=== PATIENT | female | born 1980 | race Caucasian/White ===

== ENCOUNTER 2021-06-21 15:21 | Inpatient (IN) | payer MEDICAID, OTHER ==
[~2021-06-21] VITALS: Ht 162.6 cm; Wt 95.3 kg
[2021-06-21 15:58] LABS: CHLORIDE 102 mEq/L (98-107)
[2021-06-21 15:59] LABS: BASOPHILS % 0.5 % (0.0-2.0); EOSINOPHILS % 1.5 % (0.0-5.0); HEMATOCRIT. 35.3 % (36.0-48.0); LYMPHOCYTES % 17.2 % (20.0-50.0); MEAN CORPUSCULAR HEMOGLOBIN 29.5 pg (28.0-32.0); MEAN CORPUSCULAR VOLUME 86.8 fL (81.0-99.0); MEAN PLATELET VOLUME 8.2 fl (7.4-10.4); MONOCYTES % 7.3 % (2.0-8.0); NEUTROPHILS % 73.5 % (40.0-76.0); PLATELET 316 x1000/uL (130-400); RED BLOOD CELL COUNT 4.07 mill/uL (4.2-5.4); RED CELL DISTRIBUTION WIDTH 14.2 % (11.6-14.6)
[2021-06-21 21:14] LABS: HCG SCREEN NEGATIVE
[2021-06-21] MEDS ORDERED: CEFTRIAXONE 1 G PREMIX 50 ML IV ONE (23:00)
[2021-06-21] MEDS ORDERED: SODIUM CHLORIDE 0.9% 1000ML BAG (SEPSIS BOLUS) IV ONE (23:00)
[2021-06-21 23:21] LABS: CLARITY URINE CLEAR (CLEAR); COLOR URINE DARK YELLOW (YELLOW); KETONES URINE TRACE (NEGATIVE); OCCULT BLOOD URINE NEGATIVE (NEGATIVE); PH URINE 5.5 (4.5-8.0); PROTEIN URINE 2+ (NEGATIVE); SPECIFIC GRAVITY URINE 1.034 (1.005-1.030)
[2021-06-21 23:22] LABS: LEUKOCYTE ESTERASE URINE NEGATIVE (NEGATIVE); NITRITE URINE NEGATIVE (NEGATIVE)
[2021-06-22] MEDS ORDERED: ACETAMINOPHEN 325MG TABLET PO PRN (04:00)
[2021-06-22] MEDS ORDERED: CLONIDINE 0.1MG TABLET PO PRN (04:00)
[2021-06-22] MEDS ORDERED: ONDANSETRON HCL 4MG/2ML INJ IV PRN (04:00)
[2021-06-22] MEDS ORDERED: ENOXAPARIN 40MG/0.4ML SYR SUBCUT SCH (04:00)
[2021-06-22] MEDS ORDERED: DOCUSATE SODIUM 100MG CAPSULE PO PRN (04:00)
[2021-06-22] MEDS ORDERED: NALOXONE HCL 0.4 MG/ML 1ML VIAL IV PRN (04:15)
[2021-06-22] MEDS: SODIUM CHLORIDE 0.9% 1,000 ML IV SCH ×2 (04:58→17:27)
[2021-06-22] MEDS ORDERED: VANCOMYCIN 1 G PREMIX 200 ML IV SCH (05:00)
[2021-06-22] MEDS: HYDROCODONE/ACETAMINOPHEN 5/325MG TABLET PO PRN ×2 (05:31→12:37)
[2021-06-22] MEDS ORDERED: DEXTROSE 50% WATER 50ML SYRINGE IV PRN (08:00)
[2021-06-22] MEDS: INSULIN LISPRO 100 UNITS/ML SUBCUT SCH ×4 (08:18→22:23)
[2021-06-22] MEDS: ENOXAPARIN 30MG/0.3ML SYR SUBCUT SCH ×2 (09:22→21:00)
[2021-06-22] MEDS: VANCOMYCIN 1 G PREMIX 200 ML IV SCH (18:26)
[2021-06-23] VITALS: BP 128/79
[2021-06-23] MEDS ORDERED: CEFTRIAXONE 1 G PREMIX 50 ML IV SCH
[2021-06-23 00:30] VITALS: BP 128/79
[2021-06-23] MEDS ORDERED: CEFTRIAXONE 1,000 MG in DEXTROSE 5% WATER 50 ML IV SCH (01:00)
[2021-06-23] MEDS: HYDROCODONE/ACETAMINOPHEN 5/325MG TABLET PO PRN (01:17)
[2021-06-23] MEDS ORDERED: OMEP20CA14 MT (03:56)
[2021-06-23] MEDS ORDERED: GLIP10TA10 MT (03:56)
[2021-06-23] MEDS ORDERED: METF-874 MT (03:56)
[2021-06-23] MEDS ORDERED: QUET300T2 PO (03:56)
[2021-06-23] MEDS ORDERED: INSU100I24 SQ (03:56)
[2021-06-23] MEDS ORDERED: DULO30CA52 PO (03:56)
[2021-06-23] MEDS ORDERED: ARIP5TAB58 MT (03:56)
[2021-06-23] MEDS ORDERED: GABA-529 PO (03:56)
[2021-06-23 04:00] VITALS: BP 120/76
[2021-06-23] MEDS: SODIUM CHLORIDE 0.9% 1,000 ML IV SCH (06:12)
[2021-06-23] MEDS: VANCOMYCIN 1 G PREMIX 200 ML IV SCH (06:12)
[2021-06-23] MEDS: BLOOD SUGAR DIAGNOSTIC STRIP TEST SCH ×2 (06:12→12:49)
[2021-06-23] MEDS: INSULIN LISPRO 100 UNITS/ML SUBCUT SCH ×2 (06:13→14:01)
[2021-06-23 08:00] VITALS: BP 119/77
[2021-06-23 10:32] LABS: CHLORIDE 100 mEq/L (98-107)
[2021-06-23 10:38] LABS: BASOPHILS % 0.9 % (0.0-2.0); EOSINOPHILS % 1.2 % (0.0-5.0); HEMATOCRIT. 32.7 % (36.0-48.0); LYMPHOCYTES % 15.9 % (20.0-50.0); MEAN CORPUSCULAR HEMOGLOBIN 28.8 pg (28.0-32.0); MEAN CORPUSCULAR VOLUME 86.1 fL (81.0-99.0); MEAN PLATELET VOLUME 8.9 fl (7.4-10.4); MONOCYTES % 7.3 % (2.0-8.0); NEUTROPHILS % 74.7 % (40.0-76.0); PLATELET 374 x1000/uL (130-400); RED BLOOD CELL COUNT 3.81 mill/uL (4.2-5.4); RED CELL DISTRIBUTION WIDTH 13.7 % (11.6-14.6)
[2021-06-23] MEDS: ENOXAPARIN 30MG/0.3ML SYR SUBCUT SCH (12:06)
[2021-06-23 12:19] VITALS: BP 119/77
== END 2021-06-23 16:21 | disposition home or self-care (01) | DRG 383 ==
LOC: ER 15:21 → 8WST 06-22 00:03 → EDBEDREQ 06-22 00:42 → EDBEDREQTM 06-22 00:42 → EDBEDREQSVC 06-22 08:16 → ENRESERV 06-22 21:40
PROVIDERS: ADMIT Hospitalist; ATTEND Hospitalist
DX: L03.115 Cellulitis of right lower limb (principal); E43 Unspecified severe protein-calorie malnutrition; I10 Essential (primary) hypertension; E11.65 Type 2 diabetes mellitus with hyperglycemia; Z82.49 Family history of ischemic heart disease and other diseases of the circulatory system; Z20.822 Contact with and (suspected) exposure to COVID-19; Z68.36 Body mass index [BMI] 36.0-36.9, adult
CPT/HCPCS: 36415; 76705; 76857; 76881; 80048; 80053; 80076; 81003; 82962; 83605; 84703; 85025; 93971; 99285; J0696; J1650; J1815; J3370; J7030; J7060

== ENCOUNTER 2021-07-23 16:40 | Emergency (ER) | payer MEDICAID, OTHER ==
[~2021-07-23] VITALS: Ht 162.6 cm; Wt 95.0 kg
[~2021-07-23 16:40] MED LIST: ARIP5TAB58 MT; DULO30CA52 PO; GABA-529 PO; GLIP10TA10 MT; INSU100I24 SQ; METF-874 MT; OMEP20CA14 MT; QUET300T2 PO; SULF-13 MT
[2021-07-24] MEDS ORDERED: CLIN300C12 MT (00:41)
[2021-07-24 04:30] LABS: EOSINOPHILS % 7.1 % (0.0-5.0); HEMATOCRIT. 34.6 % (36.0-48.0); HEMOGLOBIN. 11.5 g/dL (12.0-16.0); LYMPHOCYTES % 29.8 % (20.0-50.0); MEAN CORPUSCULAR HEMOGLOBIN 27.9 pg (28.0-32.0); MEAN CORPUSCULAR VOLUME 84.3 fL (81.0-99.0); MEAN PLATELET VOLUME 8.8 fl (7.4-10.4); MONOCYTES % 6.2 % (2.0-8.0); NEUTROPHILS % 55.9 % (40.0-76.0); PLATELET 381 x1000/uL (130-400)
[2021-07-24 04:36] LABS: CHLORIDE 106 mEq/L (98-107)
[2021-07-24 06:00] VITALS: BP 141/86
== END 2021-07-24 06:25 | disposition home or self-care (01) ==
LOC: ER 16:40
DX: T81.49XA Infection following a procedure, other surgical site, initial encounter (principal); I10 Essential (primary) hypertension; E11.9 Type 2 diabetes mellitus without complications; Z48.00 Encounter for change or removal of nonsurgical wound dressing; Z13.9 Encounter for screening, unspecified; Z79.899 Other long term (current) drug therapy; Z90.49 Acquired absence of other specified parts of digestive tract; X58.XXXA Exposure to other specified factors, initial encounter; Y93.89 Activity, other specified; Y92.89 Other specified places as the place of occurrence of the external cause; Y99.8 Other external cause status
CPT/HCPCS: 36415; 73630; 80048; 85025; 99284